=== PATIENT | male | born 1965 | race Two or more races ===

== ENCOUNTER 2021-07-01 03:24 | Emergency (ER) | payer OTHER ==
[2021-07-01 03:36] VITALS: BP 165/82; PULSE 57; TEMP 97.8; BMI 24.3
[2021-07-01] MEDS ORDERED: ACETAMINOPHEN 325 MG TABLET (FP) PO ONE (03:44)
[2021-07-01] MEDS ORDERED: SODIUM CHLORIDE 1,000 ML IV STA (03:44)
[2021-07-01] MEDS ORDERED: FAMOTIDINE 20 MG/50 ML IVPB 20 MG/50 ML MG IVPB ONE (03:44)
[2021-07-01] MEDS ORDERED: MAG HYDROX/AL HYDROX/SIMETH -MYLANTA- ORAL SUSPENSION PO ONE (03:44)
[2021-07-01] MEDS ORDERED: ONDANSETRON 4 MG/2 ML VIAL IVPUSH ONE (03:44)
[2021-07-01] MEDS ORDERED: MAG HYDROX/AL HYDROX/SIMETH 30 ML UNIT-DOSE CUP ONE (03:48)
[2021-07-01] MEDS ORDERED: ACETAMINOPHEN 325 MG TABLET (FP) ONE (03:48)
[2021-07-01 04:01] LABS: BASO % 0.3 % (0-2.0); EOS % 0.2 % (0-4.5); HEMATOCRIT 39.8 % (35.4-49); HEMOGLOBIN 13.1 GM/dL (11.7-16.9); LYMPH % 15.2 % (8-40); MCH 28.4 pg (25.7-33.7); MCHC 32.9 g/dl (32.0-35.9); MEAN CELL VOLUME 86.5 fl (80-96); MEAN PLT VOLUME 8.2 fl (7.5-11.1); MONO % 3.5 % (3.8-10.2); NEUT % 80.8 % (42.8-82.8); PLATELET COUNT 182 10^3/uL (134-434); RBC 4.59 M/mm3 (4.00-5.60); RDW 15.4 % (11.9-15.9); WHITE BLOOD COUNT 13.3 K/mm3 (4.0-10.0)
[2021-07-01] MEDS ORDERED: ONDANSETRON 4 MG/2 ML VIAL ONE (04:08)
[2021-07-01] MEDS ORDERED: FAMOTIDINE/PF 20 MG/2 ML VIAL ONE (04:08)
[2021-07-01 04:21] LABS: CHLORIDE 108 mmol/L (98-107); SODIUM 142 mmol/L (136-145)
[2021-07-01 04:23] LABS: CALCIUM 8.5 mg/dL (8.5-10.1)
[2021-07-01 04:24] LABS: ALBUMIN 3.7 g/dl (3.4-5.0); ANION GAP 3 MMOL/L (8-16); BLOOD UREA NITROGEN 19.9 mg/dL (7-18); CO2 31 mmol/L (21-32); GLUCOSE,RANDOM 116 mg/dL (74-106); LIPASE 517 U/L (73-393)
[2021-07-01 04:26] LABS: SGPT/ALT 13 U/L (13-61)
[2021-07-01 04:27] LABS: CREATININE 0.8 mg/dL (0.55-1.3); SGOT/AST 10 U/L (15-37)
[2021-07-01 04:28] LABS: BILIRUBIN,TOTAL 0.2 mg/dL (0.2-1); TOT PROT 7.5 g/dl (6.4-8.2)
[2021-07-01 04:29] LABS: ALK PHOS 70 U/L (45-117)
== END 2021-07-01 05:47 | disposition home or self-care (01) ==
LOC: JER 03:24
PROC: 3E033GC Introduction of Other Therapeutic Substance into Peripheral Vein, Percutaneous Approach (ICD-10-PCS; principal; 2021-07-01)
PROC: 3E033GC Introduction of Other Therapeutic Substance into Peripheral Vein, Percutaneous Approach (ICD-10-PCS; 2021-07-01)
PROC: 3E0337Z Introduction of Electrolytic and Water Balance Substance into Peripheral Vein, Percutaneous Approach (ICD-10-PCS; 2021-07-01)
DX: R10.33 Periumbilical pain (principal); R11.2 Nausea with vomiting, unspecified
CPT/HCPCS: 36415; 80053; 82550; 83690; 84484; 85025; 93005; 93010; 99284-25

== ENCOUNTER 2022-07-28 00:55 | Emergency (ER) | payer OTHER ==
[2022-07-28 01:11] VITALS: BP 126/73; PULSE 90; RESP 18; TEMP 98; BMI 22.0
[2022-07-28] MEDS ORDERED: IBUPROFEN 600 MG TABLET (FP) PO ONE ×2 (03:52→03:58)
== END 2022-07-28 04:01 | disposition left against medical advice (07) ==
LOC: JER 00:55
DX: R07.9 Chest pain, unspecified (principal); M25.552 Pain in left hip; V03.10XA Pedestrian on foot injured in collision with car, pick-up truck or van in traffic accident, initial encounter
CPT/HCPCS: 70450-TC; 72125-TC; 99284-25

== ENCOUNTER 2022-09-18 08:45 | Inpatient (IN) | payer OTHER ==
[2022-09-18 09:27] VITALS: BP 137/77; PULSE 60; RESP 16; TEMP 97.3; BMI 21.2
[2022-09-18] MEDS ORDERED: MAG HYDROX/AL HYDROX/SIMETH 30 ML UNIT-DOSE CUP PO PRN (09:57)
[2022-09-18] MEDS ORDERED: NALOXONE HCL (KLOXXADO) 8 MG SPRAY NS PRN (09:57)
[2022-09-18] MEDS ORDERED: BENZOCAINE/MENTHOL (CHLORASEPTIC ) LOZENGE MM PRN (09:57)
[2022-09-18] MEDS ORDERED: guaiFENesin 200 MG/10 ML 10 ML UNIT-DOSE CUPS PO PRN (09:57)
[2022-09-18] MEDS ORDERED: P-EPHED 60MG/TRIPROLIDI 2.5MG TABLET PO PRN (09:57)
[2022-09-18] MEDS ORDERED: MAGNESIUM HYDROX 2400MG/30ML ORAL SUSPENSION 30 ML CUP PO PRN (09:57)
[2022-09-18] MEDS ORDERED: ACETAMINOPHEN 325 MG TABLET (FP) PO PRN (09:57)
[2022-09-18] MEDS ORDERED: hydrOXYzine PAMOATE 25 MG CAPSULE (FP) PO PRN (09:57)
[2022-09-18] MEDS ORDERED: IBUPROFEN 400 MG TABLET (FP) PO PRN (09:57)
[2022-09-18] MEDS ORDERED: NICOTINE 10 MG CARTRIDGE (INHALER) IH PRN (09:57)
[2022-09-18] MEDS ORDERED: POLYETHYLENE GLYCOL (HEALTHYLAX) 3350 17 GM PACKET PO PRN (09:57)
[2022-09-18] MEDS ORDERED: LOPERAMIDE HCL 2 MG CAPSULE PO PRN (09:57)
[2022-09-18] MEDS ORDERED: NICOTINE POLACRILEX 2 MG GUM BC PRN (09:57)
[2022-09-18] MEDS ORDERED: NICOTINE 14 MG/24 HOURS TOPICAL PATCH TD SCH (11:15)
[2022-09-18] MEDS ORDERED: PRENATAL VITAMINS W/ FOLIC ACID TABLET (FP) PO SCH (11:15)
[2022-09-18] MEDS ORDERED: THIAMINE HCL 100 MG TABLET (FP) PO SCH (22:00)
[2022-09-18] MEDS ORDERED: MELATONIN 5 MG TABLETS PO SCH (22:00)
== END 2022-09-18 14:46 | disposition left against medical advice (07) | DRG 770 ==
LOC: YASAS 08:45 → Y3W 12:34
PROVIDERS: ADMIT Allergy & Immunology; ATTEND Allergy & Immunology
PROC: HZ42ZZZ Group Counseling for Substance Abuse Treatment, Cognitive-Behavioral (ICD-10-PCS; principal; 2022-09-18)
DX: F11.20 Opioid dependence, uncomplicated (principal); F17.210 Nicotine dependence, cigarettes, uncomplicated; F25.0 Schizoaffective disorder, bipolar type; Z86.19 Personal history of other infectious and parasitic diseases; F91.8 Other conduct disorders; Z91.199 Patient's noncompliance with other medical treatment and regimen due to unspecified reason
CPT/HCPCS: 87811; C9803-CS; U0003; U0005

== ENCOUNTER 2024-03-22 09:14 | Inpatient (IN) | payer OTHER ==
[2024-03-22 09:55] VITALS: BMI 16.5
[2024-03-22] MEDS ORDERED: IBUPROFEN 600 MG TABLET (FP) PO PRN (10:14)
[2024-03-22] MEDS ORDERED: ONDANSETRON *ODT* 4 MG TABLET SL PRN (10:14)
[2024-03-22] MEDS ORDERED: guaiFENesin 600 MG TABLET.ER (FP) PO PRN (10:14)
[2024-03-22] MEDS ORDERED: MAG HYDROX/AL HYDROX/SIMETH 30 ML UNIT-DOSE CUP PO PRN (10:14)
[2024-03-22] MEDS ORDERED: BENZOCAINE/MENTHOL (CHLORASEPTIC ) LOZENGE MM PRN (10:14)
[2024-03-22] MEDS ORDERED: MAGNESIUM HYDROX 2400MG/30ML ORAL SUSPENSION 30 ML CUP PO PRN (10:14)
[2024-03-22] MEDS ORDERED: ACETAMINOPHEN 325 MG TABLET (FP) PO PRN (10:14)
[2024-03-22] MEDS ORDERED: BENZONATATE 200 MG CAPSULE PO PRN (10:14)
[2024-03-22] MEDS ORDERED: IBUPROFEN 400 MG TABLET (FP) PO PRN (10:14)
[2024-03-22] MEDS ORDERED: POLYETHYLENE GLYCOL (HEALTHYLAX) 3350 17 GM PACKET PO PRN (10:14)
[2024-03-22] MEDS ORDERED: NALOXONE HCL 0.4 MG/ML VIAL IM PRN (10:14)
[2024-03-22] MEDS ORDERED: NALOXONE (NARCAN) HCL 4 MG/0.1 ML SPRAY NS PRN (10:14)
[2024-03-22] MEDS ORDERED: NICOTINE 7 MG/24 HOURS TOPICAL PATCH TD ONE (10:43)
[2024-03-22] MEDS: NICOTINE 7 MG/24 HOURS TOPICAL PATCH TD SCH (10:46)
[2024-03-22] MEDS: PRENATAL VITAMINS W/ FOLIC ACID TABLET (FP) PO SCH (10:46)
[2024-03-22] MEDS ORDERED: hydrOXYzine PAMOATE 25 MG CAPSULE (FP) PO ONE (11:13)
[2024-03-22] MEDS: hydrOXYzine PAMOATE 25 MG CAPSULE (FP) PO PRN (11:15)
[2024-03-22] MEDS: QUEtiapine FUMARATE 200 MG TABLET PO ONE (11:54)
[2024-03-22] MEDS: diazePAM 5 MG TABLET PO PRN (11:54)
[2024-03-22] MEDS: diazePAM 5 MG TABLET PO SCH (17:28)
[2024-03-22] MEDS ORDERED: QUEtiapine FUMARATE 200 MG TABLET PO SCH (22:00)
[2024-03-22] MEDS: MELATONIN 5 MG TABLETS PO SCH (22:22)
[2024-03-22] MEDS: THIAMINE 100 MG TABLET PO SCH (22:22)
[2024-03-22] MEDS: QUEtiapine FUMARATE 100 MG TABLET (FP) PO SCH (22:22)
[2024-03-23] MEDS ORDERED: methaDONE HCL 40 MG DISPERSABLE TABLET PO SCH (10:00)
[2024-03-23] MEDS: methaDONE 40 MG, methaDONE 30 MG PO SCH (10:23)
[2024-03-23 11:13] LABS: POTASSIUM 3.5 mmol/L (3.5-5.1)
[2024-03-23 11:18] LABS: ALBUMIN 4.2 g/dl (3.4-5.0); CALCIUM 9.5 mg/dL (8.5-10.1)
[2024-03-23 11:19] LABS: BLOOD UREA NITROGEN 17.2 mg/dL (7-18)
[2024-03-23 11:22] LABS: CREATININE 0.9 mg/dL (0.55-1.3)
[2024-03-23 11:24] LABS: BILIRUBIN,TOTAL 0.7 mg/dL (0.2-1); HEMATOCRIT 43.9 % (35.4-49); HEMOGLOBIN 14.6 GM/dL (11.7-16.9); MCH 29.8 pg (25.7-33.7); MCHC 33.2 g/dl (32.0-35.9); MEAN CELL VOLUME 89.8 fl (80-96); MEAN PLT VOLUME 8.9 fl (7.5-11.1); PLATELET COUNT 194 10^3/uL (134-434); RBC 4.89 M/mm3 (4.00-5.60); RDW 15.6 % (11.9-15.9); TOT PROT 7.7 g/dl (6.4-8.2); WHITE BLOOD COUNT 8.1 K/mm3 (4.0-10.0)
[2024-03-24] MEDS: diazePAM 5 MG TABLET PO SCH (05:43)
[2024-03-25] MEDS: diazePAM 5 MG TABLET PO SCH (05:53)
[2024-03-25] MEDS: DICYCLOMINE HCL 10 MG CAPSULE PO PRN (05:54)
[2024-03-25] MEDS: BISMUTH SUBSALICYLATE 524 MG/30 ML PO PRN (10:47)
[2024-03-26] MEDS: diazePAM 5 MG TABLET PO ONE (05:23)
[2024-03-27] MEDS: LOPERAMIDE HCL 2 MG CAPSULE PO PRN (06:19)
[2024-03-27] MEDS: METHOCARBAMOL 500 MG TABLET PO PRN (22:41)
[2024-03-28 09:29] VITALS: BP 147/86; PULSE 84; RESP 16; TEMP 96.9
== END 2024-03-28 09:34 | disposition home or self-care (01) | DRG 773 ==
LOC: YASAS 09:14 → Y6N 11:17
PROVIDERS: ADMIT Allergy & Immunology; ATTEND Psychiatry & Neurology Pain Medicine
PROC: HZ2ZZZZ Detoxification Services for Substance Abuse Treatment (ICD-10-PCS; principal; 2024-03-22)
DX: F13.230 Sedative, hypnotic or anxiolytic dependence with withdrawal, uncomplicated (principal); F14.20 Cocaine dependence, uncomplicated; F11.20 Opioid dependence, uncomplicated; F12.20 Cannabis dependence, uncomplicated; F17.210 Nicotine dependence, cigarettes, uncomplicated; F19.282 Other psychoactive substance dependence with psychoactive substance-induced sleep disorder; F19.280 Other psychoactive substance dependence with psychoactive substance-induced anxiety disorder; F19.24 Other psychoactive substance dependence with psychoactive substance-induced mood disorder; I10 Essential (primary) hypertension; Z86.19 Personal history of other infectious and parasitic diseases
CPT/HCPCS: 36415; 80053; 80305; 85027; 86780; 93005; 93010

== ENCOUNTER 2024-05-16 13:15 | Inpatient (IN) | payer OTHER ==
[2024-05-16] MEDS ORDERED: LOPERAMIDE HCL 2 MG CAPSULE PO PRN (15:08)
[2024-05-16] MEDS ORDERED: NALOXONE (NARCAN) HCL 4 MG/0.1 ML SPRAY NS PRN (15:08)
[2024-05-16] MEDS ORDERED: hydrOXYzine PAMOATE 25 MG CAPSULE (FP) PO PRN (15:08)
[2024-05-16] MEDS ORDERED: ONDANSETRON *ODT* 4 MG TABLET SL PRN (15:08)
[2024-05-16] MEDS ORDERED: DICYCLOMINE HCL 10 MG CAPSULE PO PRN (15:08)
[2024-05-16] MEDS ORDERED: BISMUTH SUBSALICYLATE 524 MG/30 ML PO PRN (15:08)
[2024-05-16] MEDS ORDERED: BENZONATATE 200 MG CAPSULE PO PRN (15:08)
[2024-05-16] MEDS ORDERED: guaiFENesin 600 MG TABLET.ER (FP) PO PRN (15:08)
[2024-05-16] MEDS ORDERED: METHOCARBAMOL 500 MG TABLET PO PRN (15:08)
[2024-05-16] MEDS ORDERED: IBUPROFEN 400 MG TABLET (FP) PO PRN (15:08)
[2024-05-16] MEDS ORDERED: IBUPROFEN 600 MG TABLET (FP) PO PRN (15:08)
[2024-05-16] MEDS ORDERED: MAG HYDROX/AL HYDROX/SIMETH 30 ML UNIT-DOSE CUP PO PRN (15:08)
[2024-05-16] MEDS ORDERED: BENZOCAINE/MENTHOL (CHLORASEPTIC ) LOZENGE MM PRN (15:08)
[2024-05-16] MEDS ORDERED: MAGNESIUM HYDROX 2400MG/30ML ORAL SUSPENSION 30 ML CUP PO PRN (15:08)
[2024-05-16] MEDS ORDERED: POLYETHYLENE GLYCOL (HEALTHYLAX) 3350 17 GM PACKET PO PRN (15:08)
[2024-05-16] MEDS ORDERED: ACETAMINOPHEN 325 MG TABLET (FP) ONE (17:49)
[2024-05-16] MEDS ORDERED: LORazepam 2 MG TABLET ONE (17:49)
[2024-05-16] MEDS ORDERED: PRENATAL VITAMINS W/ FOLIC ACID TABLET (FP) PO ONE (17:50)
[2024-05-16] MEDS: LORazepam 2 MG TABLET PO SCH (17:54)
[2024-05-16] MEDS: ACETAMINOPHEN 325 MG TABLET (FP) PO PRN (17:56)
[2024-05-16] MEDS: PRENATAL VITAMINS W/ FOLIC ACID TABLET (FP) PO SCH (17:56)
[2024-05-16 18:38] VITALS: RESP 18
[2024-05-17] MEDS: MELATONIN 5 MG TABLETS PO SCH (00:36)
[2024-05-17] MEDS: QUEtiapine FUMARATE 200 MG TABLET PO SCH (00:37)
[2024-05-17] MEDS: LORazepam 1 MG TABLET PO PRN (00:37)
[2024-05-17] MEDS: THIAMINE 100 MG TABLET PO SCH (00:38)
[2024-05-17 06:18] VITALS: BP 151/60; PULSE 79; TEMP 98.7
[2024-05-17] MEDS ORDERED: methaDONE HCL 10 MG TABLET (FOR DETOX USE ONLY) PO ONE (08:18)
[2024-05-17] MEDS ORDERED: cloNIDine HCL 0.1 MG TABLET PO PRN (08:18)
[2024-05-17] MEDS: NALOXONE (NYS OPIOID OVERDOSE PROGRAM) 4 MG/0.1 ML SPRAY NS PRN (08:48)
[2024-05-17] MEDS ORDERED: GABAPENTIN 300 MG CAPSULE PO SCH (10:00)
[2024-05-17] MEDS ORDERED: NICOTINE 14 MG/24 HOURS TOPICAL PATCH TD SCH (10:00)
[2024-05-18] MEDS ORDERED: LORazepam 1 MG TABLET PO SCH (05:00)
[2024-05-19] MEDS ORDERED: LORazepam 0.5 MG TABLET PO PRN
[2024-05-19] MEDS ORDERED: LORazepam 0.5 MG TABLET PO SCH (05:00)
[2024-05-19] MEDS ORDERED: methaDONE HCL 10 MG TABLET (FOR DETOX USE ONLY) PO ONE (10:00)
[2024-05-20] MEDS ORDERED: LORazepam 0.5 MG TABLET PO ONE (05:00)
[2024-05-21] MEDS ORDERED: methaDONE HCL 10 MG TABLET (FOR DETOX USE ONLY) PO ONE (10:00)
== END 2024-05-17 08:48 | disposition left against medical advice (07) | DRG 773 ==
LOC: YASAS 13:15 → Y3N 17:30
PROVIDERS: ADMIT Allergy & Immunology; ATTEND Surgery
PROC: HZ2ZZZZ Detoxification Services for Substance Abuse Treatment (ICD-10-PCS; principal; 2024-05-16)
DX: F10.230 Alcohol dependence with withdrawal, uncomplicated (principal); F11.20 Opioid dependence, uncomplicated; F14.20 Cocaine dependence, uncomplicated; F17.210 Nicotine dependence, cigarettes, uncomplicated; I10 Essential (primary) hypertension; F91.8 Other conduct disorders; Z91.199 Patient's noncompliance with other medical treatment and regimen due to unspecified reason
CPT/HCPCS: 80305; 93005; 93010

== ENCOUNTER 2024-05-18 10:33 | Emergency (ER) | payer OTHER ==
[2024-05-18 10:44] VITALS: BP 162/88; PULSE 79; RESP 20; TEMP 99; BMI 18.5
[2024-05-18] MEDS ORDERED: ONDANSETRON 4 MG TABLET PO ONE (11:19)
[2024-05-18] MEDS ORDERED: diphenhydrAMINE HCL 25 MG CAPSULE (FP) PO ONE (11:19)
[2024-05-18] MEDS ORDERED: cloNIDine HCL 0.1 MG TABLET ONE (11:20)
[2024-05-18] MEDS: diphenhydrAMINE HCL 25 MG CAPSULE (FP) PO ONE (11:25)
[2024-05-18] MEDS: cloNIDine HCL 0.1 MG TABLET PO ONE (11:25)
[2024-05-18] MEDS: ONDANSETRON 4 MG TABLET PO ONE (11:25)
[2024-05-18] MEDS ORDERED: ONDANSETRON *ODT* 4 MG TABLET ONE (13:24)
== END 2024-05-18 14:53 | disposition home or self-care (01) ==
LOC: JER 10:33
DX: F11.10 Opioid abuse, uncomplicated (principal); F19.14 Other psychoactive substance abuse with psychoactive substance-induced mood disorder; F19.180 Other psychoactive substance abuse with psychoactive substance-induced anxiety disorder; M79.661 Pain in right lower leg
CPT/HCPCS: 93970-TC; 99284-25